=== PATIENT | female | born 1995 | race Caucasian/White ===

== ENCOUNTER 2018-06-22 21:22 | Emergency (ER) | payer MEDICAID ==
[~2018-06-22] VITALS: Ht 157.5 cm; Wt 96.2 kg
[2018-06-22 21:24] VITALS: Ht 157.5 cm; Wt 96.2 kg
[2018-06-23 01:57] VITALS: BP 115/66
== END 2018-06-23 01:57 | disposition home or self-care (01) ==
LOC: ED 21:22
DX: R51 Headache (principal); H52.10 Myopia, unspecified eye; E66.01 Morbid (severe) obesity due to excess calories; Z68.38 Body mass index [BMI] 38.0-38.9, adult
CPT/HCPCS: 82962; J1200; J2765